=== PATIENT | male | born 1980 | race Caucasian/White ===

== ENCOUNTER 2019-10-09 11:12 | Emergency (ER) | payer MEDICAID ==
[~2019-10-09] VITALS: Ht 185.4 cm; Wt 73.0 kg
[2019-10-09 11:22] VITALS: BP 124/71
--- NOTE | 2019-10-09 11:50 | NUR ---
Patient discharged to home in stable condition. Written and verbal after care instructions given. Patient verbalizes understanding of instruction.
== END 2019-10-09 11:51 | disposition home or self-care (01) ==
LOC: ER 11:16
DX: H10.89 Other conjunctivitis (principal)